=== PATIENT | female | born 1970 | race Caucasian/White ===

== ENCOUNTER 2016-12-27 20:40 | Emergency (ER) | payer OTHER ==
[~2016-12-27] VITALS: Ht 162.6 cm; Wt 65.4 kg
[2016-12-27 20:43] VITALS: BP 122/68
== END 2016-12-27 21:52 | disposition home or self-care (01) ==
LOC: ED 21:44
DX: M25.562 Pain in left knee (principal); Z87.891 Personal history of nicotine dependence; J45.909 Unspecified asthma, uncomplicated
CPT/HCPCS: 29505; 99284

== ENCOUNTER 2017-01-03 12:01 | Emergency (ER) | payer MEDICAID, OTHER ==
[~2017-01-03] VITALS: Ht 162.6 cm; Wt 62.4 kg
[2017-01-03 12:17] VITALS: BP 118/80
== END 2017-01-03 13:19 | disposition home or self-care (01) ==
LOC: ED 13:00
DX: S83.92XA Sprain of unspecified site of left knee, initial encounter (principal); X58.XXXA Exposure to other specified factors, initial encounter; Y93.89 Activity, other specified; Y92.89 Other specified places as the place of occurrence of the external cause; Y99.8 Other external cause status
CPT/HCPCS: 99282